=== PATIENT | male | born 1980 | race Caucasian/White ===

== ENCOUNTER 2017-07-07 01:03 | Emergency (ER) | payer SELFPAY ==
[2017-07-07] MEDS ORDERED: NORMAL SALINE 1000 ML 1,000 ML IV ONE (01:29)
--- NOTE | 2017-07-07 01:31 | ER Document Report ---
ED General - General Stated Complaint: ALTERED MENTAL STATUS Time Seen by Provider: 07/07/17 01:16 Notes: Patient is a 36-year-old male without past medical history who presents after being found unconscious outside of the house. Patient reports that he is here visiting friends from out of town, was drinking heavily today and "lost his way " heading back home. He denies hitting his head or neck. He denies any pain complaints. He reports otherwise at this time he feels quite well. Denies any nausea, headache, neck pain, weakness, or numbness. He reports that he has been told he has hyperglycemia in the past but has never seen a physician or been formally diagnosed with diabetes. He states that he has been drinking a large amount of orange juice tonight and feels that this may be contributing to his high blood sugar. He does arrive by EMS. - Related Data Allergies/Adverse Reactions: No Known Allergies Allergy (Unverified 07/07/17 01:38) Past Medical History - General Information source: Patient - Social History Smoking Status: Never Smoker Frequency of alcohol use: Social Drug Abuse: None Family History: Reviewed & Not Pertinent Review of Systems - Review of Systems Notes: Constitutional: Negative for fever. HENT: Negative for sore throat. Eyes: Negative for visual changes. Cardiovascular: Negative for chest pain. Respiratory: Negative for shortness of breath. Gastrointestinal: Negative for abdominal pain, vomiting or diarrhea. Genitourinary: Negative for dysuria. Musculoskeletal: Negative for back pain. Skin: Negative for rash. Neurological: Negative for headaches, weakness or numbness. 10 point ROS negative except as marked above and in HPI. Physical Exam - Vital signs Interpretation: Tachycardic Notes: PHYSICAL EXAMINATION: GENERAL: Well-appearing, no acute distress. HEAD: Atraumatic, normocephalic. EYES: Pupils equal round and reactive to light, extraocular movements intact, sclera anicteric, conjunctiva are normal. ENT: nares patent, no oral pharyngeal trauma. No hemotympanum, no Addison's sign , no raccoon eyes. NECK: No midline cervical spine tenderness. Patient able to move their head to 45 bilaterally without any discomfort. LUNGS: Breath sounds clear to auscultation bilaterally and equal. No wheezes rales or rhonchi. HEART: Regular rate and rhythm without murmurs. CHEST WALL: No ecchymosis over the chest wall. ABDOMEN: Soft, nontender, normoactive bowel sounds. No guarding, no rebound. No abdominal bruising EXTREMITIES: Normal range of motion, no pitting or edema. No long bone deformities. BACK: No midline spinal tenderness, step-offs, or deformities. NEUROLOGICAL: Face symmetric. Tongue protrudes midline. Extraocular motions intact. Pupils are 2 mm and equally reactive. Normal speech, normal gait. 5 out of 5 strength in both the distal and proximal upper and lower extremities bilaterally. Sensation is grossly intact throughout. Finger to nose testing normal. Pronator drift normal. PSYCH: Mildly intoxicated SKIN: Warm, Dry, normal turgor, no rashes or lesions noted. Course - Re-evaluation Re-evalutation: 07/07/17 01:28 Patient presents after being found unconscious outside of a house. Patient admits to drinking heavily today although he is now alert, oriented, able to speak to me easily. He denies any focal complaints. Initial vitals are notable only for mild tachycardia. He does appear clinically dehydrated. His blood sugar was noted to be markedly elevated in the 400s. He notes that he has had issues with high blood sugars in the past but has never seen a doctor and never received a formal diagnosis of diabetes. He does not take any oral hypoglycemics or insulin. Trauma examination unremarkable. No focal neurologic deficits. No history or evidence of head trauma or neck trauma. Will obtain basic labs, provide IV fluids, reassess the patient. 07/07/17 02:58 Hemoglobin A1c is 6.1 which does not suggest diabetes. His blood glucose here is normal making the initial BGL rating likely to be inaccurate. He has remained hemodynamically within normal limits, no acute distress. At this time will discharge with return precautions and follow-up recommendations. Verbal discharge instructions given a the bedside and opportunity for questions given. Medication warnings reviewed. Patient is in agreement with this plan and has verbalized understanding of return precautions and the need for primary care follow-up in the next 24-72 hours. - Laboratory Result Diagrams: 07/07/17 01:10 Laboratory results interpreted by me: 07/07/17 07/07/17 01:10 01:10 Carbon Dioxide 21 L Glucose 173 H Hemoglobin A1c % 6.1 H Discharge - Discharge Clinical Impression: Hyperglycemia, Unresponsive episode Alcohol intoxication Qualifiers: Complication of substance-induced condition: uncomplicated Qualified Code(s): F10.117 - Alcohol use, unspecified with intoxication, uncomplicated Condition: Good Disposition: HOME, SELF-CARE Additional Instructions: Your labs do not suggest that your diabetic but do suggest that you are prediabetic. Please follow-up with your primary care doctor. Please also be very cautious when using alcohol as you were found unresponsive outside of a home today. Please return to the emergency room immediately if you experience any concerning symptoms including high fevers, severe headache, chest pain, difficulty breathing, abdominal pain, slurred speech, numbness or weakness in your arms or legs, or any other symptom that concerns you.
[2017-07-07 01:38] LABS: VENOUS BLOOD BASE EXCESS -2.6 mmol/L; VENOUS BLOOD HCO3 22.4 mmol/L (20-32); VENOUS BLOOD PH 7.37 (7.30-7.42)
[2017-07-07 01:56] LABS: ANION GAP 14 (5-19); BLOOD UREA NITROGEN 14 mg/dL (7-20); CALCIUM 8.9 mg/dL (8.4-10.2); CARBON DIOXIDE 21 mmol/L (22-30); CHLORIDE 107 mmol/L (98-107); GLUCOSE 173 mg/dL (75-110); POTASSIUM 4.3 mmol/L (3.6-5.0); SODIUM 142.2 mmol/L (137-145)
[2017-07-07 03:20] VITALS: BP 116/63
--- NOTE | 2017-07-07 08:51 | EKG REPORT ---
SEVERITY:- ABNORMAL ECG - SINUS RHYTHM INCOMPLETE RIGHT BUNDLE BRANCH BLOCK : Confirmed by: Shawn Munoz MD 07-Jul-2017 08:51:20
== END 2017-07-07 03:20 | disposition home or self-care (01) ==
LOC: ER 01:03
DX: F10.120 Alcohol abuse with intoxication, uncomplicated (principal); R73.9 Hyperglycemia, unspecified; R00.0 Tachycardia, unspecified
CPT/HCPCS: 93005; 99285; 96360; 36415; 80048; 83036; 82803; 93010; J7030